=== PATIENT | female | born 1945 | race Two or more races ===

== ENCOUNTER 2023-01-15 14:18 | Emergency (ER) | payer OTHER ==
[~2023-01-15] VITALS: Ht 170.2 cm; Wt 69.9 kg
[2023-01-15 15:40] LABS: Basophils # (auto) 0 10 ^3/uL (0-0.2); Basophils % (auto) 0.2 % (0.0-2.0); Eosinophils # (auto) 0 10 ^3/uL (0-0.8); Eosinophils % (auto) 0.3 % (0.0-7.0); Hematocrit 39.1 % (36.0-46.0); Hemoglobin 13.2 g/dL (12.2-16.2); Lymphocytes # (auto) 0.9 10 ^3/uL (0.4-5.4); Mean Corpuscular Hemoglobin 31.6 pg (28.0-32.0); Mean Corpuscular Hgb Conc. 33.9 g/dL (32.0-36.0); Mean Corpuscular Volume 93.2 fL (80.0-100.0); Monocytes # (auto) 1.2 10 ^3/uL (0-1.3); Monocytes % (auto) 12.1 % (0.0-12.0); Neutrophils # (auto) 7.8 10 ^3/uL (1.6-8.6); Neutrophils % (auto) 78.4 % (37.0-80.0); Red Cell Distribution Width 13.9 % (11.8-14.3)
[2023-01-15 16:01] LABS: INR 0.98 (0.9-1.15); Partial Thromboplastin Time 29.4 SEC (24.5-34.5)
[2023-01-15 16:05] LABS: Albumin 3.3 g/dL (3.4-5.0); Calcium 9.7 mg/dL (8.5-10.1); Potassium 3.5 mmol/L (3.5-5.1)
[2023-01-15 16:08] LABS: BUN/Creatinine Ratio 20.2 (10.0-20.0); Bilirubin, Total 0.4 mg/dL (0.2-1.0); Total Protein 6.9 g/dL (6.4-8.2)
[2023-01-15] MEDS ORDERED: LEVO500T91 PO (17:44)
[2023-01-15] MEDS ORDERED: cefTRIAXone SOD 1,000 MG VL IM ONE (17:45)
[2023-01-15 19:27] VITALS: BP 124/58
== END 2023-01-15 19:29 | disposition home or self-care (01) ==
LOC: ER 14:18
DX: J06.9 Acute upper respiratory infection, unspecified (principal); R51.9 Headache, unspecified; R42 Dizziness and giddiness; R07.89 Other chest pain; I10 Essential (primary) hypertension; Z90.49 Acquired absence of other specified parts of digestive tract
CPT/HCPCS: 36415; 71045; 80053; 83880; 84484; 85025; 85610; 85730; 93005; 96372; 99283; J0696